=== PATIENT | male | born 1980 | race Caucasian/White ===

== ENCOUNTER 2019-10-16 14:31 | Outpatient (RCR) | payer MEDICAID, SELFPAY | END 2019-11-08 23:59 | disposition home or self-care (01) | LOC: SPT 14:31 | PROVIDERS: Family Provider Physician Assistant; Referring Provider Licensed Practical Nurse; Visit Provider Licensed Practical Nurse | DX: G89.29 Other chronic pain (principal); M54.9 Dorsalgia, unspecified | CPT/HCPCS: 97110; 97161 ==

== ENCOUNTER → 2019-11-08 12:15 | Outpatient (BNVA) | payer MEDICAID, SELFPAY | PROVIDERS: Family Provider Physician Assistant; Referring Provider Licensed Practical Nurse; Visit Provider Anesthesiology Pain Medicine | DX: G89.29 Other chronic pain (principal); M51.17 Intervertebral disc disorders with radiculopathy, lumbosacral region; M54.9 Dorsalgia, unspecified; F17.210 Nicotine dependence, cigarettes, uncomplicated; Z79.891 Long term (current) use of opiate analgesic | CPT/HCPCS: 99204 ==

== ENCOUNTER 2019-11-09 06:00 | Outpatient (RCR) | payer MEDICAID, SELFPAY | END 2019-12-09 23:59 | disposition home or self-care (01) | LOC: SPT 06:00 | PROVIDERS: Family Provider Physician Assistant; Referring Provider Licensed Practical Nurse; Visit Provider Licensed Practical Nurse | DX: G89.29 Other chronic pain (principal); M54.9 Dorsalgia, unspecified | CPT/HCPCS: 97110 ==